=== PATIENT | female | born 1980 | race Caucasian/White ===

== ENCOUNTER 2017-06-03 10:45 | Observation (INO) | payer MEDICAID, OTHER ==
[~2017-06-03] VITALS: Ht 170.2 cm; Wt 90.0 kg
[2017-06-03] VITALS (9 sets, daily range): BP systolic 106–142; BP diastolic 55–85; PULSE 65–88; RESP 15–20; TEMP 98.1–98.6; O2SAT 98–100
[~2017-06-03 10:45] MED LIST: AMLO5TAB2 PO; LEXA5TAB PO; PERC7.5T13 PO; ROBA500T PO; VENTAER INH
--- NOTE | 2017-06-03 11:24 | PD ---
HPI Chief Complaint: Chest Pain Time Seen by Provider: 11:16 Travel History International Travel<30 days: No Contact w/Intl Traveler<30days: No Traveled to known affect area: No History of Present Illness HPI 36-year-old female patient with history of previous neck injury, asthma, panic attacks, presents to the ER today because of intermittent episodes of chest discomfort which last a few minutes at a time. She states that she had one episode last night and one this morning. She is currently chest pain-free. She gets some shortness of breath with episodes and tried to use her inhaler this morning but she states it does not feel like an asthma attack. She denies any coughing, fevers, or any other symptoms. She does not know any exacerbating factors. 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) Cardiovascular Problems: No COPD: Yes Diabetes: No Diminished Hearing: No Endocrine: No Genitourinary: No Hepatitis: No Hiatal Hernia: No Immune Disorder: No Musculoskeletal: Yes Neurologic: Yes Psychiatric: No Reproductive: No Respiratory: Yes Immunizations Current: Yes Thyroid Disease: No ?: Not LMP: 05/24/17 : 6 Para: 6 Past Surgical History Abdominal Surgery: Yes (cysectomy Jun 2013) AICD: No Body Medical Devices: TITANIUM ODALYS/SCREW L FEMUR Cardiac Surgery: No Ear Surgery: No Endocrine Surgery: No Eye Surgery: No Genitourinary Surgery: No Gynecologic Surgery: No Joint Replacement: No Oral Surgery: No Pacemaker: No Thoracic Surgery: No Tonsillectomy: Yes (ADENOIDS ) Tympanostomy Tube: Yes Other Surgery: Yes (SURGERY FOR CELLULITIS RIGHT HIP) Social History Alcohol Use: Yes (ONCE OR TWICE A MONTH ) Tobacco Use: Yes (1/2 PPD) Substance Use: No Allergies-Medications (Allergen,Severity, Reaction): Coded Allergies: No Known Allergies (Verified , 06/03/17) Reported Meds & Prescriptions Reported Meds & Active Scripts Active Reported Amlodipine (Amlodipine Besylate) 5 Mg Tab 5 Mg PO DAILY Lexapro (Escitalopram Oxalate) 5 Mg Tab 5 Mg PO DAILY Ventolin Hfa 18 GM Inh (Albuterol Sulfate) 90 Mcg/Act Aer 2 Puff INH Q4-6H PRN Percocet (Oxycodone-Acetaminophen) 7.5-325 mg Tab 1 Tab PO Q4H PRN Robaxin (Methocarbamol) 500 Mg Tab 1,000 Mg PO QID Review of Systems Except as stated in HPI: all other systems reviewed are Neg Physical Exam Narrative GENERAL: Well-developed young white female patient currently in mild distress. Awake and oriented 3. SKIN: Focused skin assessment warm/dry. HEAD: Atraumatic. Normocephalic. EYES: Pupils equal and round. No scleral icterus. No injection or drainage. ENT: No nasal bleeding or discharge. Mucous membranes pink and moist. NECK: Trachea midline. No JVD. CARDIOVASCULAR: Regular rate and rhythm. No murmur appreciated. Pulses are present and equal bilaterally. RESPIRATORY: No accessory muscle use. Clear to auscultation. Breath sounds equal bilaterally. GASTROINTESTINAL: Abdomen soft, non-tender, nondistended. Hepatic and splenic margins not palpable. MUSCULOSKELETAL: No obvious deformities. No clubbing. No cyanosis. No edema. NEUROLOGICAL: Awake and alert. No obvious cranial nerve deficits. Motor grossly within normal limits. Normal speech. PSYCHIATRIC: Appropriate mood and affect; insight and judgment normal. Data Data Last Documented VS Vital Signs Date Time Temp Pulse Resp B/P (MAP) Pulse Ox O2 Delivery O2 Flow Rate FiO2 06/03/17 11:20 98 Room Air 06/03/17 11:19 81 20 136/85 (102) 06/03/17 10:48 98.6 Orders Orders Electrocardiogram (06/03/17 11:16) Basic Metabolic Panel (Bmp) (06/03/17 11:16) Ckmb (Isoenzyme) Profile (06/03/17 11:16) Complete Blood Count With Diff (06/03/17 11:16) Magnesium (Mg) (06/03/17 11:16) Prothrombin Time / Inr (Pt) (06/03/17 11:16) Act Partial Throm Time (Ptt) (06/03/17 11:16) Troponin I (06/03/17 11:16) Chest, Single Ap (06/03/17 11:16) Ecg Monitoring (06/03/17 11:16) Bilateral Bp Monitoring (06/03/17 11:16) Iv Access Insert/Monitor (06/03/17 11:16) Oximetry (06/03/17 11:16) Oxygen Administration (06/03/17 11:16) Sodium Chloride 0.9% Flush (Ns Flush) (06/03/17 11:30) CKMB (06/03/17 11:30) CKMB% (06/03/17 11:30) Labs Laboratory Tests Test 06/03/17 11:30 White Blood Count 9.6 TH/MM3 Red Blood Count 4.92 MIL/MM3 Hemoglobin 13.4 GM/DL Hematocrit 40.3 % Mean Corpuscular Volume 81.8 FL Mean Corpuscular Hemoglobin 27.1 PG Mean Corpuscular Hemoglobin Concent 33.2 % Red Cell Distribution Width 15.1 % Platelet Count 275 TH/MM3 Mean Platelet Volume 9.5 FL Neutrophils (%) (Auto) 64.9 % Lymphocytes (%) (Auto) 27.4 % Monocytes (%) (Auto) 5.7 % Eosinophils (%) (Auto) 1.7 % Basophils (%) (Auto) 0.3 % Neutrophils # (Auto) 6.2 TH/MM3 Lymphocytes # (Auto) 2.6 TH/MM3 Monocytes # (Auto) 0.5 TH/MM3 Eosinophils # (Auto) 0.2 TH/MM3 Basophils # (Auto) 0.0 TH/MM3 CBC Comment DIFF FINAL Differential Comment Prothrombin Time 10.5 SEC Prothromb Time International Ratio 1.0 RATIO Activated Partial Thromboplast Time 28.3 SEC Blood Urea Nitrogen 13 MG/DL Creatinine 0.64 MG/DL Random Glucose 87 MG/DL Calcium Level 9.0 MG/DL Magnesium Level 2.1 MG/DL Sodium Level 137 MEQ/L Potassium Level 4.2 MEQ/L Chloride Level 106 MEQ/L Carbon Dioxide Level 25.7 MEQ/L Anion Gap 5 MEQ/L Estimat Glomerular Filtration Rate 106 ML/MIN Total Creatine Kinase 111 U/L Creatine Kinase MB 0.9 NG/ML Troponin I LESS THAN 0.02 NG/ML MDM Medical Decision Making Medical Screen Exam Complete: Yes Emergency Medical Condition: Yes Medical Record Reviewed: Yes Interpretation(s) EKG shows NSR, no ST elevation or depression, and no arrhythmias. No significant T-wave inversions. Laboratory Tests Test 06/03/17 11:30 Troponin I LESS THAN 0.02 NG/ML Last 24 hours Impressions Chest X-Ray 06/03/17 1116 Signed Impressions: Service Date/Time: Saturday, June 03, 2017 11:48 - CONCLUSION: No acute disease. Jas Starks MD Differential Diagnosis episodes of chest tightness: Anxiety attack versus dysrhythmias versus ACS Narrative Course EKG did not show any signs of changes. Cardiac enzymes are negative. Metabolic panel is unremarkable. At this point, had talked to the patient regarding findings and have offered to admit her to the chest pain center but the patient is concerned about payment. She is currently chest pain-free. This chest pain is fairly atypical. However, a would recommend further cardiology evaluation. She does not want to stay to be evaluated and chest pain center and I would recommend follow-up with cardiology as an outpatient for further provocative testing for evaluation. Return for any worsening in symptoms. The plan has discussed with her and she states understanding. Diagnosis Primary Impression: Atypical chest pain Disposition: 01 DISCHARGE HOME Condition: Stable Adama Esteban MD Jun 03, 2017 11:24
[2017-06-03] MEDS ORDERED: SODIUM CHLORIDE 0.9% FLUSH 10 ML FLUSH IVF PRN (11:30)
[2017-06-03 12:18] LABS: AUTOMATED NEUTROPHIL # 6.2 TH/MM3 (1.8-7.7); BASOPHIL % 0.3 % (0.0-2.0); EOSINOPHIL # 0.2 TH/MM3 (0-0.4); EOSINOPHIL % 1.7 % (0.0-4.0); HEMATOCRIT 40.3 % (35.0-46.0); HEMO FLAGS DIFF FINAL; LYMPH % 27.4 % (9.0-44.0); LYMPHOCYTE # 2.6 TH/MM3 (1.0-4.8); MEAN CELL VOLUME 81.8 FL (80.0-100.0); MEAN CORPUSCULAR HEMOGLOBIN 27.1 PG (27.0-34.0); MEAN CORPUSCULAR HGB CONC 33.2 % (32.0-36.0); MONO % 5.7 % (0.0-8.0); NEUT % 64.9 % (16.0-70.0); PLATELET COUNT 275 TH/MM3 (150-450); RED BLOOD COUNT 4.92 MIL/MM3 (4.00-5.30); RED CELL DISTRIBUTION WIDTH 15.1 % (11.6-17.2); WHITE BLOOD COUNT 9.6 TH/MM3 (4.0-11.0)
--- NOTE | 2017-06-03 12:22 | RADRPT ---
EXAM DATE/TIME: 06/03/2017 11:48 [facility] COMPARISON: No previous studies available for comparison. INDICATIONS : Midsternsl to left side chest pains, radiating into back. MEDICAL HISTORY : None. SURGICAL HISTORY : None. ENCOUNTER: Initial ACUITY: 2 days PAIN SCORE: 8/10 LOCATION: Left FINDINGS: A single view of the chest demonstrates the lungs to be symmetrically aerated without evidence of mas s, infiltrate or effusion. The cardiomediastinal contours are unremarkable. Osseous structures are intact. CONCLUSION: No acute disease. Jas Starks MD on June 03, 2017 at 12:21 Board Certified Radiologist. This report was verified electronically.
[2017-06-03 12:25] LABS: APTT (PATIENT) 28.3 SEC (24.3-30.1); PROTHROMBIN TIME - PATIENT 10.5 SEC (9.8-11.6)
[2017-06-03 12:36] LABS: ANION GAP 5 MEQ/L (5-15); BICARBONATE 25.7 MEQ/L (21.0-32.0); BLOOD UREA NITROGEN 13 MG/DL (7-18); CHLORIDE 106 MEQ/L (98-107); CREATINE KINASE 111 U/L (26-192); GLOMERULAR FILTRATION RATE 106 ML/MIN (>89); MAGNESIUM 2.1 MG/DL (1.5-2.5); POTASSIUM 4.2 MEQ/L (3.5-5.1); SODIUM (NA) 137 MEQ/L (136-145)
[2017-06-03 13:01] LABS: CKMB 0.9 NG/ML (0.5-3.6)
[2017-06-03] MEDS ORDERED: NITROGLYCERIN 0.4 MG SL 25 TABS/BTL SL PRN (15:00)
[2017-06-03] MEDS ORDERED: ONDANSETRON HCL 4 MG/2 ML VIAL IV PUSH PRN (15:00)
[2017-06-03] MEDS ORDERED: ACETAMINOPHEN 500 MG CPLT PO PRN (15:00)
[2017-06-03] MEDS ORDERED: SODIUM CHLORIDE 0.9% FLUSH 10 ML FLUSH IV FLUSH PRN (15:00)
[2017-06-03 15:54] LABS: CREATINE KINASE 84 U/L (26-192)
--- NOTE | 2017-06-03 16:31 | HHI.HP ---
HPI Primary Care Physician Diamond Jernigan Jr, MD Chief Complaint Chest pain History of Present Illness 36-year-old female with history of hypertension presents to emergency room as directed by her PCP for further evaluation of chest pain. First episode occurred Friday morning 6:30 AM while talking with coworkers. Developed a sudden, severe pain between her shoulder blades that radiated substernally. Characterized as pressure. No radiation. Duration 2 minutes. Associated symptoms include dyspnea. Denied nausea, vomiting, diaphoresis. No known precipitating or relieving factors. After episode felt fatigue for approximately 3-4 hours. She was able to attend her evening classes. Second episode occurred 6 AM upon awakening. Reports she was diaphoretic, confused, and had a pain in the center of her chest. No radiation. Unable to give duration due to confusion. Reports history of night terrors although states this episode was not a night care. She called her primary care provider and was directed to come to the emergency room. Review of Systems General: No fatigue, weakness, fever, chills, recent illness, or change in appetite. Has been her general state of health. HEENT: No FERNANDEZ, no vision changes CV: As stated above. No current chest pain or pressure. History of palpitations, has not had episode of palpitation in many years. No dizziness. RESP: No SOB, cough, sputum production, or recent URI. History of asthma. GI: No nausea, vomiting, bowel changes, endorses her "normal IBS symptoms." Unintentional weight gain of 40 pounds status post cervical injury and surgery 2013. : No dysuria, urgency, or frequency EXT: No lower leg edema. Chronic intermittent paraesthesias of all 4 extremities status post cervical injury. Reports past paralysis bilateral lower extremities before cervical surgery. 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 Past Family Social History Allergies: Coded Allergies: No Known Allergies (Verified , 06/03/17) Past Medical History Hypertension (has been out of amlodipine for a few months), asthma, depression, anxiety, nightmares, palpitations, DVTs-superficial and right hand status post work related injury Past Surgical History Left femur aleshia, prosthetic cervical device Reported Medications Active Reported Has been out of all medications in the past 2-3 months Amlodipine (Amlodipine Besylate) 5 Mg Tab 5 Mg PO DAILY Lexapro (Escitalopram Oxalate) 5 Mg Tab 5 Mg PO DAILY Ventolin Hfa 18 GM Inh (Albuterol Sulfate) 90 Mcg/Act Aer 2 Puff INH Q4-6H PRN Percocet (Oxycodone-Acetaminophen) 7.5-325 mg Tab 1 Tab PO Q4H PRN Robaxin (Methocarbamol) 500 Mg Tab 1,000 Mg PO QID Active Ordered Medications Current Medications Medications (Trade) Dose Ordered Sig/Christopher Route Start Time Stop Time Status Last Admin (NS Flush) 2 ml UNSCH PRN IV FLUSH 06/03/17 15:00 (NS Flush) 2 ml BID IV FLUSH 06/03/17 21:00 (Tylenol) 500 mg Q4H PRN PO 06/03/17 15:00 (Zofran Inj) 4 mg Q6H PRN IV PUSH 06/03/17 15:00 (Nitrostat Sl) 0.4 mg Q5M PRN SL 06/03/17 15:00 (Aspirin) 325 mg DAILY PO 06/04/17 09:00 Family History Paternal Grandfather-early onset coronary artery disease in his mid 40s requiring open heart surgery. Father, mother, and siblings no early onset cardiovascular disease. Social History Known hypertension (currently not taking BP meds). No known diabetes, hyperlipidemia, or personal coronary artery disease. Current smoker 1/2 pack daily. Drinks alcohol rarely. Denies any illegal drug use. 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 Currently working at local [employer] and attending evening classes. A mother 6 children. Past cardiac testing Exercise stress test 11 years unremarkable-prior to entrance to police force. Physical Exam Vital Signs Vital Signs Date Time Temp Pulse Resp B/P (MAP) Pulse Ox O2 Delivery O2 Flow Rate FiO2 06/03/17 15:06 99 21 06/03/17 14:53 98.1 73 17 142/77 (98) 100 06/03/17 14:48 06/03/17 14:04 65 15 136/72 (93) 100 Room Air 06/03/17 11:20 98 Room Air 06/03/17 11:19 81 20 136/85 (102) 99 Room Air 06/03/17 11:19 136/85 (102) 06/03/17 10:48 98.6 88 16 136/83 (100) 98 Physical Exam GENERAL: Alert WN, WD, NAD, pleasant, female HEAD: NC, AT CV: RRR, without murmur, rub, gallop, no JVD, S1-S2 no S3-S4. RESP: Clear lungs throughout bilateral, no crackles, wheeze, rhonchi, symmetrical chest rise, nonlabored, able to speak in full sentences ABD: Soft, NT, ND, no masses, positive bowel tones BACK: No scoliosis EXT: Pulses +24, no dependent edema MS: Normal tone 4 extremities, nontender, no obvious deformities, full range of motion NEURO: CN II through CN XII grossly intact, motor strength 5/5 PSYCH: A+O 3, pleasant affect, appropriate speech, appropriate mood and affect , insight and judgment SKIN: Normal turgor, normal texture, no lesions, no rashes, multiple tattoos Laboratory Laboratory Tests Test 06/03/17 11:30 06/03/17 15:00 White Blood Count 9.6 Red Blood Count 4.92 Hemoglobin 13.4 Hematocrit 40.3 Mean Corpuscular Volume 81.8 Mean Corpuscular Hemoglobin 27.1 Mean Corpuscular Hemoglobin Concent 33.2 Red Cell Distribution Width 15.1 Platelet Count 275 Mean Platelet Volume 9.5 Neutrophils (%) (Auto) 64.9 Lymphocytes (%) (Auto) 27.4 Monocytes (%) (Auto) 5.7 Eosinophils (%) (Auto) 1.7 Basophils (%) (Auto) 0.3 Neutrophils # (Auto) 6.2 Lymphocytes # (Auto) 2.6 Monocytes # (Auto) 0.5 Eosinophils # (Auto) 0.2 Basophils # (Auto) 0.0 CBC Comment DIFF FINAL Differential Comment Prothrombin Time 10.5 Prothromb Time International Ratio 1.0 Activated Partial Thromboplast Time 28.3 Blood Urea Nitrogen 13 Creatinine 0.64 Random Glucose 87 Calcium Level 9.0 Magnesium Level 2.1 Sodium Level 137 Potassium Level 4.2 Chloride Level 106 Carbon Dioxide Level 25.7 Anion Gap 5 Estimat Glomerular Filtration Rate 106 Total Creatine Kinase 111 84 Creatine Kinase MB 0.9 Troponin I LESS THAN 0.02 LESS THAN 0.02 Result Diagram: 06/03/17 1130 06/03/17 1130 Imaging Last Impressions Chest X-Ray 06/03/17 1116 Signed Impressions: Service Date/Time: Saturday, June 03, 2017 11:48 - CONCLUSION: No acute disease. Jas Starks MD Course EKG Normal sinus rhythm, normal axis, no ST or T-segment changes Caprini VTE Risk Assessment Caprini VTE Risk Assessment: No/Low Risk (score <= 1) Caprini Risk Assessment Model Point Value = 1 Point Value = 2 Point Value = 3 Point Value = 5 Age 41-60 Minor surgery BMI > 25 kg/m2 Swollen legs Varicose veins or History of unexplained or recurrent spontaneous Oral contraceptives or hormone replacement Sepsis (< 1 month) Serious lung disease, including pneumonia (< 1 month) Abnormal pulmonary function Acute myocardial infarction Congestive heart failure (< 1 month) History of inflammatory bowel disease Medical patient at bed rest Age 61-74 Arthroscopic surgery Major open surgery (> 45 min) Laparoscopic surgery (> 45 min) Malignancy Confined to bed (> 72 hours) Immobilizing plaster cast Central venous access Age >= 75 History of VTE Family history of VTE Factor V Leiden Prothrombin [id number] Lupus anticoagulant Anticardiolipin antibodies Elevated serum homocysteine Heparin-induced thrombocytopenia Other congenital or acquired thrombophilia Stroke (< 1 month) Elective arthroplasty Hip, pelvis, or leg fracture Acute spinal cord injury (< 1 month) Prophylaxis Regimen Total Risk Factor Score Risk Level Prophylaxis Regimen 0-1 Low Early ambulation 2 Moderate Order ONE of the following: *Sequential Compression Device (SCD) *Heparin 5000 units SQ BID 3-4 Higher Order ONE of the following medications: *Heparin 5000 units SQ TID *Enoxaparin/Lovenox 40 mg SQ daily (WT < 150 kg, CrCl > 30 mL/min) *Enoxaparin/Lovenox 30 mg SQ daily (WT < 150 kg, CrCl > 10-29 mL/min) *Enoxaparin/Lovenox 30 mg SQ BID (WT < 150 kg, CrCl > 30 mL/min) AND/OR *Sequential Compression Device (SCD) 5 or more Highest Order ONE of the following medications: *Heparin 5000 units SQ TID (Preferred with Epidurals) *Enoxaparin/Lovenox 40 mg SQ daily (WT < 150 kg, CrCl > 30 mL/min) *Enoxaparin/Lovenox 30 mg SQ daily (WT < 150 kg, CrCl > 10-29 mL/min) *Enoxaparin/Lovenox 30 mg SQ BID (WT < 150 kg, CrCl > 30 mL/min) AND *Sequential Compression Device (SCD) Assessment and Plan Assessment and Plan #1 Atypical chest pain-admitted to chest pain center. Ruled out with 2 sets of EKGs and cardiac enzymes. Seen and evaluated by Dr. Alycia Hull. Proceed with exercise stress test this evening. If unremarkable will discharge with follow-up with her PCP. #2 Hypertension-amlodipine 5 mg prescription refill will be provided at discharge, encouraged following a low sodium diet Esther Alonso Jun 03, 2017 16:31
[2017-06-03] MEDS ORDERED: AMLO5TAB2 PO (18:10)
--- NOTE | 2017-06-03 18:10 | HHI.DCPOC ---
Discharge Care Plan Diagnosis: (1) Hypertension (2) Situational stress (3) Atypical chest pain Goals to Promote Your Health * To prevent worsening of your condition and complications * To maintain your health at the optimal level Directions to Meet Your Goals Take your medications as prescribed Follow your dietary instruction Follow activity as directed Keep your appointments as scheduled Take your immunizations and boosters as scheduled If your symptoms worsen call your PCP, if no PCP go to Urgent Care Center or Emergency Room Smoking is Dangerous to Your Health. Avoid second hand smoke Call the 24-hour hour crisis hotline for domestic abuse at Esther Alonso Jun 03, 2017 18:10
--- NOTE | 2017-06-03 18:26 | EKG ---
Date Performed: 06/03/2017 Time Performed: 15:14:25 PTAGE: 36 years EKG: Sinus rhythm POSSIBLE RIGHT VENTRICULAR CONDUCTION DELAY BORDERLINE ECG Since PREVIOUS TRACING , no significant change noted DOCTOR: Alycia Hull Interpretating Date/Time 06/03/2017 18:25:30
--- NOTE | 2017-06-03 18:27 | EKG ---
Date Performed: 06/03/2017 Time Performed: 11:28:56 PTAGE: 36 years EKG: Sinus rhythm POSSIBLE RIGHT VENTRICULAR CONDUCTION DELAY BORDERLINE ECG Since PREVIOUS TRACING , no significant change noted PREVIOUS TRACIN10/25/2014 11.05 DOCTOR: Alycia Hull Interpretating Date/Time 06/03/2017 18:26:11
[2017-06-03] MEDS ORDERED: SODIUM CHLORIDE 0.9% FLUSH 10 ML FLUSH IV FLUSH SCH (21:00)
[2017-06-04] MEDS ORDERED: ASPIRIN 325 MG TAB PO SCH (09:00)
--- NOTE | 2017-06-04 11:26 | TR ---
Date Performed: 06/03/2017 Time Performed: 18:04:03 DOCTOR: Evangelist Ramos DRUG LIST: CLINICAL HISTORY: REASON FOR TEST: Chest pain REASON FOR ENDING: OBSERVATION: CONCLUSION: Lester protocol completed. Stopped sec to exceeding target heart rate. Maximum DR=827 % Target HR Achieved=89.0% Maximum CW=558/84 Total Exercise Time=6:29. No reprod chest discomfort. N o ectopy. Once stating st t nonspecfic changes noted, nonspecfic returned to baseline. Normal bp resp onse. Recovery quick and unremarkable. COMMENTS: Patient exercised using the Lester protocol. No electrocardiographic changes were seen to suggest ischemia. Hemodynamic response to exercise was normal. No significant arrhythmia was prese nt.
== END 2017-06-03 20:30 | disposition home or self-care (01) ==
LOC: NEPC 10:45 → NEDA 13:30 → NEPFCDU 14:52
PROVIDERS: ADMIT Internal Medicine Interventional Cardiology; ATTEND Internal Medicine Interventional Cardiology
DX: R07.89 Other chest pain (principal); I10 Essential (primary) hypertension; R00.2 Palpitations; J44.9 Chronic obstructive pulmonary disease, unspecified; R61 Generalized hyperhidrosis; I82.599 Chronic embolism and thrombosis of other specified deep vein of unspecified lower extremity; F17.210 Nicotine dependence, cigarettes, uncomplicated; R94.31 Abnormal electrocardiogram [ECG] [EKG]
CPT/HCPCS: 71010; 80048; 82550; 82552; 83735; 84484; 85025; 85610; 85730; 93005; 93017; 99285; G0378